=== PATIENT | male | born 1995 | race Caucasian/White ===

== ENCOUNTER 2023-12-16 01:46 | Emergency (ER) | payer OTHER ==
[~2023-12-16] VITALS: Ht 177.8 cm; Wt 59.0 kg
[2023-12-16] MEDS ORDERED: Acetaminophen 325 MG TABLET PO ONE (03:55)
[2023-12-16] MEDS ORDERED: Ketorolac Tromethamine 30mg Vial IM ONE (03:55)
== END 2023-12-16 04:08 | disposition home or self-care (01) ==
LOC: ER 01:46
DX: S49.91XA Unspecified injury of right shoulder and upper arm, initial encounter (principal); X50.0XXA Overexertion from strenuous movement or load, initial encounter; Y99.0 Civilian activity done for income or pay
CPT/HCPCS: 73030; A9270; J1885